=== PATIENT | male | born 1970 | race Caucasian/White ===

== ENCOUNTER 2016-05-08 16:11 | Inpatient (IN) | payer SELFPAY ==
--- NOTE | ~2016-05-08 | OP ---
Record Of Operation [facility] [address] [place]. [address] NAME: BRYSON PRINCE : 70 STATUS : ADM IN PAT#: [id number] AGE: 46 ADM/REG DATE : 05/08/16 MR#: [id number] REPORT SERV DATE: 05/09/16 DICTATED BY: SHEY RIBEIRO DATE: 05/09/16 REPORT STATUS : Draft TRANSCRIBED BY: MODL DATE: 05/09/16 DATE OF PROCEDURE: 05/08/2016 CONTINUATION: DESCRIPTION OF OPERATION: First inserting the finger and then a Chani were inserted into the umbilical defect to ensure intraabdominal placement. We then placed an 11 mm trocar in the fashion of Martha. The abdomen was insufflated to a pressure of 15 mmHg with carbon dioxide gas. The laparoscope was then inserted into the intraabdominal contents, inspected for injury during trocar placement, and none were noted. We did, however, notice that appeared to have diffuse peritonitis within the abdomen as well as areas of rind and purulence. We then placed two more 5 mm trocars after placing the patient into the reverse Trendelenburg right-sided position. Due to this patient's known location of his appendix which appeared to be in the right upper quadrant and retrocecal, for this case, we elected to place two 5 mm trocars in the lower abdomen, one off to the left lower quadrant and one more in the midline. Prior to each trocar placement, the skin was anesthetized with local anesthesia, an incision made with a scalpel, and the trocars placed under direct visualization of the laparoscope. We were able to identify the appendix. This appeared to be very inflamed and thickened and adherent to the right pericolic gutter. We then used a combination of blunt dissection and sharp dissection to peel the appendix away from the sidewall. Due to the angles of this case, ultimately it was decided to place another 5 mm trocar in the right upper quadrant. This allowed us to, once we had finally dissected out the base of the appendix, make a window at the base. At this point, we had been using the suction medical collections . It should also be noted that during blunt dissection, the appendiceal artery was identified, and this was grasped with a Maryland and then ligated with clips. We then finally placed the laparoscopic stapler with a white load and passed this across the mesoappendix, dividing it completely. In a similar fashion, we then placed the stapler with a blue load across the base of the appendix and divided it. The appendix was then placed into a laparoscopic retrieval bag and removed through the umbilical port site. We then reinserted the trocar, and the appendix was passed off the table as specimen. Using suction medical collections, we suctioned the right gutter as well as the right upper quadrant copiously until the effluent return was clear. A drain was brought out of the right lower quadrant incision and the intraabdominal portion was laid along the right gutter up towards the liver. We then removed all of the 5 mm trocars with direct visualization with laparoscope. Hemostasis was felt to be excellent. We finally removed the infraumbilical trocar. All the carbon dioxide was allowed to desufflate entirely. Once all the trocars were removed, the incisions were irrigated and the fascial edges of the infraumbilical port site fascial edges were reapproximated using 0 Vicryl UR-6. After irrigating all incisions, the skin edges were reapproximated using 4-0 Monocryl stitches, additionally we had sutured the drain in place with a 2-0 Vicryl suture. Sterile dressings were placed. The patient tolerated procedure well and was able to be extubated and transferred to PACU in stable condition. Dr. Ribeiro, the attending, was present and scrubbed for the entirety of the case. DICTATED BY: Viktoria Singer MD Record Of Operation [address] [address] NAME: BRYSON PRINCE : 70 STATUS : ADM IN PAT#: [id number] AGE: 46 ADM/REG DATE : 05/08/16 MR#: [id number] REPORT SERV DATE: 05/09/16 DICTATED BY: SHEY RIBEIRO DATE: 05/09/16 REPORT STATUS : Draft TRANSCRIBED BY: MODShannan DATE: 05/09/16 /NIDA Shey Ribeiro MD / [id number]
--- NOTE | ~2016-05-08 | HP ---
History And Physical [facility] [address] [place]. [address] NAME: BRYSON PRINCE : 70 STATUS : ADM IN [facility]#: [id number] AGE: 46 ADM/REG DATE : 05/08/16 MR#: [id number] REPORT SERV DATE: 05/08/16 DICTATED BY: SHEY RIBEIRO DATE: 05/08/16 REPORT STATUS : Draft TRANSCRIBED BY: MODL DATE: 05/08/16 DATE OF ADMISSION: 05/08/2016 CHIEF COMPLAINT: Abdominal pain. HISTORY OF PRESENT ILLNESS: This is a 46-year-old male who states that he began having pain on Monday, the 05/06/2016. This was somewhat in the right lower quadrant. He says since then it has migrated inferiorly and somewhat towards the back. He denies nausea. He denies anorexia. He does state that he has had some intermittent chills and sweats. He denies any changes to his bowel movements and he has never had any pain similar to this type before. He presented to an outside hospital where he was found to have a right-sided abdominal pain, and after workup, concerning for ruptured appendicitis, he was transferred to [facility] for surgical evaluation. PAST MEDICAL HISTORY: Includes hypertension. PAST SURGICAL HISTORY: None. MEDICATION: Amlodipine. ALLERGIES: NO KNOWN DRUG ALLERGIES. SOCIAL HISTORY: The patient smokes approximately half pack per day and denies any significant alcohol or street drug use. REVIEW OF SYSTEMS: A comprehensive review of systems was performed was negative except as noted in the HPI. PHYSICAL EXAMINATION: VITAL SIGNS: At the outside hospital, his admission vitals were pulse of 114, blood pressure of 122/88, respirations 16, saturating 99% on room air, with a temperature of 98.4. GENERAL: This is a well-developed, well-nourished male. He is slightly obese, but in no acute distress. HEENT: Normocephalic, atraumatic. Pupils are round, reactive to light. Extraocular movements and cranial nerves II through XII are grossly intact. His nares are patent. His mucous membranes are moist. There is no obvious obstruction in his oropharynx. NECK: Supple. His trachea is midline. CARDIOVASCULAR: He is tachycardic, but regular rhythm. No murmurs, rubs, or gallops. LUNGS: Clear to auscultation bilaterally. No rhonchi. No wheeze. ABDOMEN: His abdomen is soft and nondistended. He is focally tender on the right side of his abdomen, actually more in the right upper quadrant than the lower quadrant. He does have some focal rebound in this area. He has a positive Rovsing sign. Otherwise, I do not appreciate any masses, pulsatile or otherwise. EXTREMITIES: The patient is able to move all of his four extremities equally. NEURO: He has no focal neurological deficits. VASCULAR: He has 2+ bilateral radial and dorsalis pedis pulses. History And Physical [address] [place]. [address] NAME: BRYSON PRINCE : 70 STATUS : ADM IN [facility]#: [id number] AGE: 46 ADM/REG DATE : 05/08/16 MR#: [id number] REPORT SERV DATE: 05/08/16 DICTATED BY: SHEY RIBEIRO DATE: 05/08/16 REPORT STATUS : Draft TRANSCRIBED BY: MODShannan DATE: 05/08/16 LABORATORY DATA: White blood cells 16.4, hemoglobin 18.3, hematocrit 53.2, platelets of 189, neutrophils have a left shift of 91%. Urinalysis is essentially negative for any abnormalities. Sodium 134, potassium 3.5, chloride 96, CO2 of 23, BUN of 7, creatinine 0.8, calcium 8.7, glucose of 142. LFTs; albumin 4.1, total protein 7.5, alkaline phosphatase 92, ALT 36, AST 31, bilirubin 0.7, lipase of 17. There is a by report a CT from an outside hospital. We have not yet been able to personally review the images ourselves, however, the radiologist report was sent with the patient and is indicative of a ruptured appendicitis with a retrocecal appendix. There is a small collection of air and fluid adjacent to the dilated appendiceal tip measuring approximately 1.6 x 1.2 cm consistent with a developing appendiceal abscess, otherwise the patient has a 0.7 cm stone at the right ureterovesical junction with very mild ureteral nephrosis. Otherwise, there were no clinically significant findings. ASSESSMENT: This is a 46-year-old male, appears to have acute perforated appendicitis. Given that his abscess is too small to drain, the plan will be to take him to the operating room for laparoscopic appendectomy, possible open. Risks, benefits were discussed with the patient as well as alternatives including but not limited to, bleeding, infection, damage to surrounding structures including intestines, possible development of a hernia, or a possible postoperative abscess. All questions were sought and answered and the patient wished to proceed. Dr. Ribeiro, the attending, saw this patient simultaneously and agrees with the plan noted here in. DICTATED BY: Viktoria Singer MD SE/RAFAELAL Shey Ribeiro MD / [id number] CC: Shey Ribeiro MD
--- NOTE | ~2016-05-08 | DS ---
Discharge Summary [facility] [address] [place]. [address] NAME: BRYSON PRINCE : 70 STATUS : DIS IN PAT#: [id number] AGE: 46 ADM/REG DATE : 05/08/16 MR#: [id number] REPORT SERV DATE: 05/18/16 DICTATED BY: SHEY RIBEIRO DATE: 05/17/16 REPORT STATUS : Draft TRANSCRIBED BY: MODShannan DATE: 05/17/16 Data Collection from hospitalization DISCHARGE DIAGNOSES: 1. Perforated acute appendicitis. 2. Hypertension. 3. Tobacco use. CONSULTATIONS: None. PROCEDURES PERFORMED: Laparoscopic appendectomy on 05/08/2016. PATHOLOGY: Appendix, appendectomy - ruptured acute appendicitis and periappendicitis. MEDICATIONS: Norvasc 10 mg at bedtime, Augmentin 875 mg twice a day, Colace 100 mg twice a day, and Percocet 5/325 one tablet every four hours as needed. CONDITION AT DISCHARGE: Stable. DISPOSITION: The patient was discharged home on a regular diet with activities as instructed. He would follow up with me on 05/25/2016. HOSPITAL COURSE: This is a 46-year-old man who presented to the emergency room complaining of two days of abdominal pain on the right side of his abdomen. On physical exam, lab findings, and imaging, he was found to have acute appendicitis with suspicion of rupture due to a small and what appeared to be developing abscess collection. Treatment options were discussed and it was elected to proceed with surgical intervention. He was admitted to the hospital at this time for further evaluation and treatment. Upon admission, the patient was taken to the operating room where he underwent the above- mentioned procedure. He tolerated this well, and there were no complications. On postop day #1, he was doing well. He had no nausea. He was passing a small amount of flatus. He said he was feeling better as compared to admission. Antibiotics were continued. On 05/10/2016, his abdomen was mildly distended. He was tolerating oral intake. He was passing a small amount of flatus. White count was 12.1. He continued to progress. Over the next couple of days, he did have a bowel movement. Discharge planning was performed. On 05/12/2016, he continued to do well. Discharge instructions were given. Due to his improved and stable condition, he was discharged home with the above-stated instructions. Information collected by: Brandy Seymour I submit the above information as my discharge summary. TG/NIDA Shey Ribeiro MD / [id number] Discharge Summary [address] [address] NAME: BRYSON PRINCE : 70 STATUS : DIS IN PAT#: [id number] AGE: 46 ADM/REG DATE : 05/08/16 MR#: [id number] REPORT SERV DATE: 05/18/16 DICTATED BY: SHEY RIBEIRO JOAQUIN DATE: 05/17/16 REPORT STATUS : Draft TRANSCRIBED BY: NIDA DATE: 05/17/16 CC: MD SULEIMAN Hawkins TAWANDA GALE
--- NOTE | ~2016-05-08 | OP ---
Record Of Operation [facility] [address] [place]. [address] NAME: BRYSON PRINCE : 70 STATUS : ADM IN PAT#: [id number] AGE: 46 ADM/REG DATE : 05/08/16 MR#: [id number] REPORT SERV DATE: 05/09/16 DICTATED BY: SHEY RIBEIRO DATE: 05/09/16 REPORT STATUS : Draft TRANSCRIBED BY: MODL DATE: 05/09/16 DATE OF PROCEDURE: 05/08/2016 PREOPERATIVE DIAGNOSIS: Perforated acute appendicitis. POSTOPERATIVE DIAGNOSIS: Perforated acute appendicitis. PROCEDURE: Laparoscopic appendectomy. ATTENDING SURGEON: Jose Ribeiro MD RESIDENT SURGEON: Viktoria Singer MD. ANESTHESIA: General endotracheal anesthesia and local anesthesia. SPECIMENS: Appendix. BLOOD LOSS: 50 mL. IV FLUIDS: 1200 mL of crystalloid. COMPLICATIONS: None. INDICATION: Mr. Prince is a 46-year-old male, who presented to the emergency room complaining of two days of abdominal pain on the right side of his abdomen. On physical exam, laboratory findings, and imaging, he was found to have acute appendicitis with suspicion of rupture due to a small and appeared to be developing abscess collection. The patient was offered laparoscopic appendectomy. Risks and benefits were discussed with the patient as well as alternative questions were sought and answered. The patient wished to proceed. DESCRIPTION OF THE OPERATION: The patient was brought to the operating room, placed supine on the operating table. After satisfactory induction of general endotracheal anesthesia, the patient's abdomen was prepped and draped in usual sterile fashion. A time-out was performed with all staff present. The patient received appropriate preoperative antibiotics. We began by anesthetizing the area just at the inferior of the umbilicus. We then made a longitudinal midline infraumbilical incision with a scalpel. We dissected down to the fascia using blunt dissection. The fascia was grasped midline and opened using Bovie electrocautery. First inserting the finger and then a Chani were inserted into the umbilical defect to ensure intraabdominal placement. We then placed an 11 mm trocar in the fashion of Martha. The abdomen was insufflated to a pressure of 15 mmHg with carbon dioxide gas. The laparoscope was then inserted into the intraabdominal contents, inspected for injury during trocar placement, and none were noted. We did, however, notice that appeared to have diffuse peritonitis within the abdomen as well as areas of rind and purulence. We then Record Of Operation [facility] [address] [place]. [address] NAME: BRYSON PRINCE : 70 STATUS : ADM IN PAT#: [id number] AGE: 46 ADM/REG DATE : 05/08/16 MR#: [id number] REPORT SERV DATE: 05/09/16 DICTATED BY: SHEY RIBEIRO DATE: 05/09/16 REPORT STATUS : Draft TRANSCRIBED BY: NIDA DATE: 05/09/16 placed two more 5 mm trocars after placing the patient into the reverse Trendelenburg right- sided position. Due to this patient's known location of his appendix which appeared to be in the right upper quadrant and retrocecal, for this case, we elected to place two 5 mm trocars in the lower abdomen, one off to the left lower quadrant and one more in the midline. Prior to each trocar placement, the skin was anesthetized with local anesthesia, an incision made with a scalpel, and the trocars placed under direct visualization of the laparoscope. We were able to identify the appendix. This appeared to be very inflamed and thickened and adherent to the right pericolic gutter. We then used a combination of blunt dissection and sharp dissection to peel the appendix away from the sidewall. Due to the angles of this case, ultimately it was decided to place another 5 mm trocar in the right upper quadrant. This allowed us to, once we had finally dissected out the base of the appendix, make a window at the base. At this point, we had been using the suction floor finisher as we went. It should also be noted that during blunt dissection, the appendiceal artery was identified, and this was grasped with a Maryland and then ligated with clips. We then finally placed the laparoscopic stapler with a white load and passed this across the mesoappendix, dividing it completely. In a similar fashion, we then placed the stapler with a blue load across the base of the appendix and divided it. The appendix was then placed into a laparoscopic retrieval bag and removed through the umbilical port site. We then reinserted the trocar, and the appendix was passed off the table as specimen. Using suction floor finisher, we suctioned the right gutter as well as the right upper quadrant copiously until the effluent return was clear. A drain was brought out of the right lower quadrant incision and the intraabdominal portion was laid along the right gutter up towards the liver. We then removed all of the 5 mm trocars with direct visualization with laparoscope. Hemostasis was felt to be excellent. We finally removed the infraumbilical trocar. All the carbon dioxide was allowed to desufflate entirely. Once all the trocars were removed, the incisions were irrigated and the fascial edges of the infraumbilical port site fascial edges were reapproximated using 0 Vicryl UR-6. After irrigating all incisions, the skin edges were reapproximated using 4-0 Monocryl stitches, additionally we had sutured the drain in place with a 2-0 Vicryl suture. Sterile dressings were placed. The patient tolerated procedure well and was able to be extubated and transferred to PACU in stable condition. Dr. Ribeiro, the attending, was present and scrubbed for the entirety of the case. DICTATED BY: Viktoria Singer MD SE/MODL Shey Ribeiro MD / [id number] CC: Shey Ribeiro MD
[2016-05-08] MEDS ORDERED: NORV10 PO (16:52)
[2016-05-08] MEDS ORDERED: ACET500CAP PO (16:53)
[2016-05-10 06:24] LABS: BASOPHILS 0.1 %; BASOPHILS ABSOLUTE 0.01 10/3/uL (0.0-0.16); EOSINOPHILS 0 %; HEMATOCRIT 44.3 % (40.0-51.0); HEMOGLOBIN 15.5 g/dL (13.6-17.8); IMMATURE GRANULOCYTES 0.3 %; IMMATURE GRANULOCYTES ABSOLUTE 0.04 10/3/uL (0.0-0.11); LYMPHOCYTES 10.1 %; LYMPHOCYTES ABSOLUTE 1.22 10/3/uL (0.67-4.30); MEAN CORPUSCULAR HEMOGLOB 34.1 pg (26.0-34.0); MEAN CORPUSCULAR VOLUME 97.4 fL (80-100); MEAN PLATELET VOLUME 10.4 fL (9.2-13.0); MONOCYTES 8.2 %; MONOCYTES ABSOLUTE 0.99 10/3/uL (0.21-1.20); NEUTROPHILS 81.3 %; NEUTROPHILS ABSOLUTE 9.79 10/3/uL (2.02-8.40); PLATELET COUNT 217 10/3/uL (150-400); RBC DISTRIBUTION WIDTH 12.5 % (12.0-16.0); RED CELL COUNT 4.55 10/6/uL (4.7-6.1); WHITE BLOOD CELLS 12.1 10/3/uL (4.5-10.5)
[2016-05-10 06:25] LABS: MANUAL DIFF NO %
[2016-05-11 07:03] LABS: BASOPHILS 0.3 %; BASOPHILS ABSOLUTE 0.03 10/3/uL (0.0-0.16); EOSINOPHILS 1.2 %; EOSINOPHILS ABSOLUTE 0.11 10/3/uL (0.0-0.53); HEMATOCRIT 45.1 % (40.0-51.0); HEMOGLOBIN 15.7 g/dL (13.6-17.8); IMMATURE GRANULOCYTES 0.5 %; IMMATURE GRANULOCYTES ABSOLUTE 0.05 10/3/uL (0.0-0.11); LYMPHOCYTES 23.7 %; LYMPHOCYTES ABSOLUTE 2.19 10/3/uL (0.67-4.30); MEAN CORPUS HGB CONC 34.8 g/dL (32.0-36.0); MEAN CORPUSCULAR HEMOGLOB 33.9 pg (26.0-34.0); MEAN CORPUSCULAR VOLUME 97.4 fL (80-100); MEAN PLATELET VOLUME 10.2 fL (9.2-13.0); MONOCYTES 12.1 %; MONOCYTES ABSOLUTE 1.12 10/3/uL (0.21-1.20); NEUTROPHILS 62.2 %; NEUTROPHILS ABSOLUTE 5.74 10/3/uL (2.02-8.40); PLATELET COUNT 277 10/3/uL (150-400); RBC DISTRIBUTION WIDTH 12.7 % (12.0-16.0); RED CELL COUNT 4.63 10/6/uL (4.7-6.1); WHITE BLOOD CELLS 9.2 10/3/uL (4.5-10.5)
[2016-05-11 07:05] LABS: MANUAL DIFF NO %
[2016-05-12 07:13] LABS: BASOPHILS 0.8 %; BASOPHILS ABSOLUTE 0.08 10/3/uL (0.0-0.16); EOSINOPHILS 4.6 %; EOSINOPHILS ABSOLUTE 0.43 10/3/uL (0.0-0.53); HEMATOCRIT 47.7 % (40.0-51.0); HEMOGLOBIN 16.6 g/dL (13.6-17.8); IMMATURE GRANULOCYTES 1.5 %; IMMATURE GRANULOCYTES ABSOLUTE 0.14 10/3/uL (0.0-0.11); LYMPHOCYTES 25.6 %; LYMPHOCYTES ABSOLUTE 2.41 10/3/uL (0.67-4.30); MANUAL DIFF NO %; MEAN CORPUS HGB CONC 34.8 g/dL (32.0-36.0); MEAN CORPUSCULAR HEMOGLOB 34.2 pg (26.0-34.0); MEAN CORPUSCULAR VOLUME 98.1 fL (80-100); MEAN PLATELET VOLUME 9.7 fL (9.2-13.0); MONOCYTES 12.1 %; MONOCYTES ABSOLUTE 1.14 10/3/uL (0.21-1.20); NEUTROPHILS 55.4 %; NEUTROPHILS ABSOLUTE 5.22 10/3/uL (2.02-8.40); PLATELET COUNT 306 10/3/uL (150-400); RBC DISTRIBUTION WIDTH 12.6 % (12.0-16.0); RED CELL COUNT 4.86 10/6/uL (4.7-6.1); WHITE BLOOD CELLS 9.4 10/3/uL (4.5-10.5)
[2016-05-12] MEDS ORDERED: DSS PO (10:07)
[2016-05-12] MEDS ORDERED: AUG875 PO (10:09)
[2016-05-12] MEDS ORDERED: PCET PO (10:10)
== END 2016-05-12 10:39 | disposition home or self-care (01) | DRG 340 ==
LOC: 5SO 16:11
PROVIDERS: Surgery
PROC: 0DTJ4ZZ Resection of Appendix, Percutaneous Endoscopic Approach (ICD-10-PCS; principal; 2016-05-08 17:59)
DX: K35.3 Acute appendicitis with localized peritonitis (principal); I10 Essential (primary) hypertension; F17.210 Nicotine dependence, cigarettes, uncomplicated
CPT/HCPCS: 85025; 88304; 93005; A9270-GY; J0694; J1885; J2405; J2710; J3010